=== PATIENT | male | born 1965 | race Caucasian/White ===

== ENCOUNTER 2018-01-17 08:27 | Day surgery (SDC) | payer OTHER ==
[2018-01-17] MEDS ORDERED: MIDAZOLAM 1 MG/ML 2 ML INJ ×2 (10:25)
[2018-01-17] MEDS ORDERED: FENTAnyl 50 MCG/ML VIAL (10:25)
== END 2018-01-17 12:31 | disposition home or self-care (01) ==
LOC: GIL 08:27
DX: Z12.11 Encounter for screening for malignant neoplasm of colon (principal); D12.5 Benign neoplasm of sigmoid colon; K29.60 Other gastritis without bleeding; B96.81 Helicobacter pylori [H. pylori] as the cause of diseases classified elsewhere; K64.8 Other hemorrhoids
CPT/HCPCS: 43239; 87081; 88305